=== PATIENT | male | born 1980 ===

== ENCOUNTER 2017-05-23 18:28 | Emergency (ER) | payer OTHER ==
[~2017-05-23] VITALS: Ht 188 cm; Wt 95.3 kg
[~2017-05-23 18:28] MED LIST: GILTUSS TR TAB1 EACH PO; KETO10TA2 PO; ORPH100T PO; ULTRACET PO; ZYRTEC10 MG PO
== END 2017-05-23 22:01 | disposition home or self-care (01) ==
LOC: ER 18:28
DX: R07.89 Other chest pain (principal)

== ENCOUNTER 2018-05-05 07:21 | Outpatient (CLI) | payer OTHER | END 2018-05-05 07:28 | disposition home or self-care (01) | LOC: LAB 07:21 | DX: E78.49 Other hyperlipidemia (principal); R42 Dizziness and giddiness; Z00.00 Encounter for general adult medical examination without abnormal findings ==

== ENCOUNTER → 2020-02-25 17:42 | Outpatient (CLI) | payer OTHER | END | disposition home or self-care (01) | LOC: LAB 17:42 | PROVIDERS: ATTEND Family Medicine | DX: Z03.818 Encounter for observation for suspected exposure to other biological agents ruled out (principal); Z20.828 Contact with and (suspected) exposure to other viral communicable diseases ==

== ENCOUNTER 2020-05-21 13:50 | Outpatient (CLI) | payer OTHER | END 2020-05-21 14:00 | disposition home or self-care (01) | LOC: RAD 13:50 → MRI 14:15 | PROVIDERS: ATTEND Family Medicine | DX: M51.37 Other intervertebral disc degeneration, lumbosacral region (principal); M54.5 Low back pain | CPT/HCPCS: 72148 ==

== ENCOUNTER 2021-07-01 09:01 | Outpatient (CLI) | payer OTHER | END 2021-07-01 09:14 | disposition home or self-care (01) | LOC: SONOGRAMA 09:01 | PROVIDERS: ATTEND Family Medicine | DX: R10.9 Unspecified abdominal pain (principal) ==

== ENCOUNTER 2023-10-19 08:59 | Outpatient (CLI) | payer OTHER ==
[2023-10-19 10:10] LABS: HEMATOCRIT 41.7 % (39.0-48.0); HEMOGLOBIN 13.8 g/dL (13-16.00); MEAN CELL VOLUME 77.6 fL (80.0-100.00); MEAN CORPUSCULAR HEMOGLOBIN 25.8 pg (27.00-32.0); MEAN CORPUSCULAR HGB CONC 33.2 g/dl (32.0-36.0); PLATELET COUNT 158 K/uL (150-450); RED BLOOD COUNT 5.37 M/uL (4.00-6.00); RED CELL DISTRIBUTION WIDTH 14.4 % (11.5-14.5)
[2023-10-19 10:32] LABS: URINE APPEARANCE Clear; URINE BILIRRUBIN Negative (NEGATIVE); URINE BLOOD Negative; URINE COLOR Yellow; URINE GLUCOSE Negative (NEGATIVE); URINE KETONE Negative (NEGATIVE); URINE LEUKOCYTE Negative; URINE NITRATE Negative; URINE PROTEIN Negative (NEGATIVE); URINE UROBILINOGEN 0.2 E.U./dl
[2023-10-19 10:40] LABS: URINE BACTERIA 2.5 uL (0.0-1933); URINE EPITHELIAL CELLS 0.2 uL (0.0-38.8); URINE RBC 1.5 uL (0.0-20.8); URINE WBC 0.4 uL (0.0-23.2)
[2023-10-19 11:07] LABS: ALBUMIN 4.3 gm/dL (3.4-5.0); BILIRUBIN TOTAL 0.99 mg/dL (0.3-1.2); CALCIUM 9.7 mg/dL (8.5-10.1); CHOL HDL RATIO 4.5 (0-5.0); CREATININE SERUM 0.91 mg/dL (0.70-1.30); FREE TRIODOTIRONINE 3.09 pg/ml (2.18-3.98); GFR 91.36; GLOBULINA 3.5 G/DL (2.4-3.5); POTASSIUM 4.07 mEq/L (3.5-5.1); T4 FREE 0.97 NG/ML (0.76-1.46); T4 TOTAL 8.05 UG/DL (4.5-12.1); TOTAL PROTEIN 7.8 gm/dL (6.4-8.2); TSH 1.63 uIU/mL (0.358-3.74)
[2023-10-19 12:19] LABS: RH POSITIVE
[2023-10-19 12:52] LABS: VITAMIN D3 25 HYDROXY 31.84 ng/ml (30-120)
[2023-10-19 15:42] LABS: RAPID PLASMA REAGIN NONREACTIVE BY RPR (NONREACTIVE)
[2023-10-20 07:07] LABS: hav igm Negative (Negative); hcv Non Reactive (Non Reactive); hep b c Negative (Negative)
[2023-10-20 09:11] LABS: PROLACTIN 7.9 ng/mL (3.9-22.7)
== END 2023-10-19 09:59 | disposition home or self-care (01) ==
LOC: LAB 08:59
DX: E55.9 Vitamin D deficiency, unspecified (principal); R73.9 Hyperglycemia, unspecified; E03.9 Hypothyroidism, unspecified; E78.9 Disorder of lipoprotein metabolism, unspecified; D64.9 Anemia, unspecified; N39.9 Disorder of urinary system, unspecified; R19.09 Other intra-abdominal and pelvic swelling, mass and lump; R97.8 Other abnormal tumor markers; R97.1 Elevated cancer antigen 125 [CA 125]; G89.3 Neoplasm related pain (acute) (chronic); Z11.3 Encounter for screening for infections with a predominantly sexual mode of transmission